=== PATIENT | female | born 1955 | race Two or more races ===

== ENCOUNTER 2024-10-29 14:54 | Outpatient (CLI) | payer OTHER | END 2024-10-29 15:00 | disposition home or self-care (01) | LOC: RAD 14:54 | PROVIDERS: ATTEND Orthopaedic Surgery | DX: M25.561 Pain in right knee (principal); M25.562 Pain in left knee ==

== ENCOUNTER 2024-11-05 14:38 | Outpatient (CLI) | payer OTHER | END 2024-11-05 14:43 | disposition home or self-care (01) | LOC: MRI 14:38 | PROVIDERS: ATTEND Orthopaedic Surgery | DX: M25.561 Pain in right knee (principal) | CPT/HCPCS: 73718 ==